=== PATIENT | male | born 1980 | race African-American/Black ===

== ENCOUNTER 2023-08-14 02:31 | Emergency (ER) | payer MEDICAID, SELFPAY ==
[2023-08-14 02:36] VITALS: BP 151/95; PULSE 68; RESP 17; TEMP 37.3; O2SAT 97
[2023-08-14 02:48] LABS: Glucose Point of Care 119 mg/dL (70-110)
[2023-08-14 03:37] LABS: Basophils % 0.1 %; Eosinophils % 0.1 %; Hematocrit 48.5 % (37-53); Lymphocytes # 1.8 10^3/uL (0.8-4.8); Lymphocytes % 10.1 %; Mean Corpuscular HGB Conc 33.2 g/dL (30-55); Mean Corpuscular Hemoglobin 27.3 pg (27-33); Mean Corpuscular Volume 82.3 fl (82-101); Mean Platelet Volume 8.7 fL (7.4-10.4); Monocytes # 0.4 10^3/uL (0.2-0.9); Monocytes % 2.4 %; Neutrophils # 15.83 10^3/uL (1.8-7.7); Nucleated Red Blood Cells % 0 %; Platelet Count 394 10^3/cmm (157-399); Red Blood Count 5.89 10^6/uL (3.85-5.65); Red Cell Distribution Width 14.5 % (12.1-15.1); White Blood Count 18.19 10^3/uL (3.29-11.43)
[2023-08-14] MEDS: sodium chloride 0.9% 1,000 ML 999 ML IV (03:43)
--- NOTE | 2023-08-14 06:40 | ED_ITS ---
HPI - Altered Mental Status 2 General: Chief Complaint: Altered Mental Status Stated Complaint: WITHDRAWALS Time Seen by Provider: 08/14/23 03:16 History of Present Illness: 43-year-old inmate at the local longterm, wh o is believed to be withdrawing from opiate. He was evidently having multiple episodes of vomiting, shakes, some diarrhea and the longterm. This was followed by decrease in mental status. He was hard to arouse following this, which was concerning to the longterm staff. Review of Systems 2 General: Reports: Other (uncooperative with interview) Physical Exam 2 Const: COMMON NORMALS: no acute distress GENERAL APPEARANCE: cooperative; not ill appearing and not frail appearing HENMT: COMMON NORMALS: normocephalic, atraumatic and Normal external nose present HEAD & SCALP: normocephalic and atraumatic FACE & SINUS: normal facial exam and face symmetric NOSE: Normal external nose present Eye: COMMON NORMALS: Equal, round and reactive pupils present and EOMs intact bilaterally PUPIL: Yes Equal, round and reactive pupils present Neck/C-Spine: GENERAL: Yes trachea midline Chest: CHEST: Yes Symmetrical chest wall rise Resp: COMMON NORMALS: normal respiratory effort, No retractions, No use of accessory muscles and clear to auscultation bilaterally AUSCULTATION: clear to auscultation bilaterally Cardio: COMMON NORMALS: regular rate and regular rhythm RATE: regular rate RHYTHM: regular rhythm GI: COMMON NORMALS: Normal to inspection, nondistended, normoactive bowel sounds present Extremity: COMMON NORMALS: no pedal edema Neuro: SENSORY EXAM: Yes extremities (intact) Psych: COMMON NORMALS: speech normal SPEECH: Yes normal speech Skin: COMMON NORMALS: no rashes or lesions noted GENERAL SKIN EXAM: no rashes or lesions noted Course 2 Vital Signs: Vital signs: Vital Signs Temperature 99.1 F 08/14/23 02:36 Pulse Rate 68 08/14/23 02:36 Respiratory Rate 17 08/14/23 02:36 Blood Pressure 151/95 08/14/23 02:36 Pulse Oximetry 97 08/14/23 02:36 Oxygen Delivery Me thod Room Air 08/14/23 02:36 MDM - Altered Mental Status Medical Decision Making On examination, the patient does not respond to voice. He does respond appropriately to minimally noxious stimuli. In other words, he is malingering. His white blood cell count is 18, likely demargination from vomiting. Hemoglobin is 16. BMP is evidently clotted. Clinically he is not ill appearing. He has recieved 1L bolus. He will be allowed DC with treatment for vomiting and withdrawal symptoms. Lab Data 08/14/23 03:25 08/14/23 03:25 Laboratory Results WBC 18.19 10^3/uL (3.29-11.43) H 08/14/23 03:25 RBC 5.89 10^6/uL (3.85-5.65) H 08/14/23 03:25 Hgb 16.10 g/dL (11.27-16.99) 08/14/23 03:25 Hct 48.5 % (37-53) 08/14/23 03:25 MCV 82.3 fl (82-101) 08/14/23 03:25 MCH 27.3 pg (27-33) 08/14/23 03:25 MCHC 33.2 g/dL (30-55) 08/14/23 03:25 RDW 14.5 % (12.1-15.1) 08/14/23 03:25 Plt Count 394 10^3/cmm (157-399) 08/14/23 03:25 MPV 8.7 fL (7.4-10.4) 08/14/23 03:25 Neut % (Auto) 87.0 % 08/14/23 03:25 Lymph % (Auto) 10.1 % 08/14/23 03:25 [place] % (Auto) 2.4 % 08/14/23 03:25 Eos % (Auto) 0.1 % 08/14/23 03:25 Baso % (Auto) 0.1 % 08/14/23 03:25 Neut # (Auto) 15.83 10^3/uL (1.8-7.7) H 08/14/23 03:25 Lymph # (Auto) 1.8 10^3/uL (0.8-4.8) 08/14/23 03:25 [place] # (Auto) 0.4 10^3/uL (0.2-0.9) 08/14/23 03:25 Eos # (Auto) 0.0 10^3/uL (0.0-0.8) 08/14/23 03:25 Baso # (Auto) 0.0 10^3/uL (0.0-0.1) 08/14/23 03:25 Nucleated RBC % (auto) 0 % 08/14/23 03:25 Nucleated RBCs # 0.0 /100WBC 08/14/23 03:25 Sodium Cancelled 08/14/23 03:25 Potassium Cancelled 08/14/23 03:25 Chloride Cancelled 08/14/23 03:25 Carbon Dioxide Cancelled 08/14/23 03:25 Anion Gap Cancelled 08/14/23 03:25 BUN Cancelled 08/14/23 03:25 Creatinine Cancelled 08/14/23 03:25 GFR Calculation Cancelled 08/14/23 03:25 Glucose Cancelled 08/14/23 03:25 POC Glucose 119 mg/dL (70-110) H 08/14/23 02:46 Calculated Osmolality Cancelled 08/14/23 03:25 Calcium Cancelled 08/14/23 03:25 Total Bilirubin Cancelled 08/14/23 03:25 AST Cancelled 08/14/23 03:25 ALT Cancelled 08/14/23 03:25 Alkaline Phosphatase Cancelled 08/14/23 03:25 C-Reactive Protein Cancelled 08/14/23 03:25 Total Protein Cancelled 08/14/23 03:25 Albumin Cancelled 08/14/23 03:25 Globulin Cancelled 08/14/23 03:25 No radiology studies performed this visit Discharge Plan Discharge Patient Disposition: Home Clinical Impression: Opioid withdrawal, Vomiting Condition: Stable Prescriptions: New clonidine HCl 0.1 mg tablet 0.1 mg PO TID Qty: 7 0RF ondansetron 4 mg film 4 mg PO DAILY PRN (Reason: nausea and vomiting) Qty: 10 0RF Discharge Orders: Discharge ED (Routine); Ordered 08/14/23 Ordered By: Bulmaro Atkins Patient Instructions: Opioid Withdrawal (ED), Opioid Safety, Pain Management, Vomiting - Adult Activity Restrictions/Additional Instructions: Patient as directed. Follow a clear liquid diet for the next 24 hours. Take nausea medication scheduled for the first 24 hours, then as needed following. Return for worsening symptoms despite treatment. Coding Level of Care Code ED Creative Consultant for [employer] Reed
== END 2023-08-14 05:51 | disposition home or self-care (01) ==
PROVIDERS: Emergency Provider Emergency Medicine
DX: F11.93 Opioid use, unspecified with withdrawal (principal); Z76.5 Malingerer [conscious simulation]
CPT/HCPCS: 36416; 82962; 85025; 96360; 99284; J7030